=== PATIENT | female | born 2000 | race Caucasian/White ===

== ENCOUNTER 2024-03-26 22:22 | Outpatient (CLI) | payer OTHER ==
[~2024-03-26] VITALS: Ht 165.1 cm; Wt 97.7 kg
--- NOTE | 2024-03-26 22:30 | NUR ---
Ambulatory to unit for assesment, accompanied by mother. Oriented to room, monitor, plan of care. Pt reports falling forward onto her belly. Denies sharp stabbing pain, LOF or vaginal bleeding. Abd non-tender to palpation.
[2024-03-26] MEDS ORDERED: PRENATAL TABLET PO (22:44)
[2024-03-26] MEDS ORDERED: LR 1,000 ML IV PRN (22:45)
[2024-03-26 23:00] VITALS: BP 113/69; PULSE 80; TEMP 98.1
--- NOTE | 2024-03-26 23:40 | NUR ---
2332- PT CONTINUES TO DENIES LOF, VB, ABDOMINAL PAIN/DISCOMFORT, OR CTXs. REPORTS GOOD FM. MONITORING DCd FOLLOWING 1 HOUR OF CAT 1 STRIP AND NO CTXs NOTED. PT MAY DC HOME PER DR. RICHARD. 2340- DISCHARGE PAPERWORK REVIEWED WITH PT AND HER MOTHER. INSTRUCTED TO RETURN TO THE UNIT IF SHE BEGINS TO HAVE ABDOMINAL PAIN, DECREASED FM, VAGINAL BLEEDING, LOF, OR CONSISTENT/PAINFUL CTXs. UNDERSTANDING VERBALIZED. PT AND MOTHER OFF THE UNIT AMBULATORY.
== END 2024-03-26 23:40 | disposition home or self-care (01) ==
LOC: LDRO 22:22
DX: O9A.213 Injury, poisoning and certain other consequences of external causes complicating pregnancy, third trimester (principal); T14.90XA Injury, unspecified, initial encounter; W19.XXXA Unspecified fall, initial encounter; Z3A.30 30 weeks gestation of pregnancy